=== PATIENT | female | born 1940 | race Native Hawaiian/Other Pacific Islander ===

== ENCOUNTER 2018-03-30 08:16 | Outpatient (CLI) | payer OTHER ==
[2018-03-30 09:44] LABS: PLATELET COUNT 319 K/uL (152-353)
[2018-03-30 10:28] LABS: POTASSIUM 3.8 mmol/L (3.6-5.2)
== END 2018-03-30 19:51 | disposition home or self-care (01) ==
LOC: LABW 08:16
PROVIDERS: Internal Medicine
DX: I10 Essential (primary) hypertension (principal); E03.8 Other specified hypothyroidism; R60.0 Localized edema; J45.998 Other asthma
CPT/HCPCS: 36415; 80053; 80061; 81000; 83880; 84439; 84443; 85027; 85379